=== PATIENT | female | born 1985 | race Asian ===

== ENCOUNTER 2024-04-20 23:45 | Emergency (ER) | payer OTHER ==
[2024-04-21] MEDS ORDERED: ASPIRIN 81 MG CHEWABLE TABLET ONE ×2 (00:08→00:10)
[2024-04-21] MEDS ORDERED: NA CHLORIDE 0.9% 1,000 ML ONE (00:09)
[2024-04-21] MEDS ORDERED: DIAZEPAM 5 MG TABLET ONE (00:09)
[2024-04-21 01:20] LABS: Absolute Eosinophils 0.1 K/uL (0-0.5); Absolute Lymphocytes (CBC) 2.7 K/uL (0.7-4.9); Absolute Monocytes 0.6 K/uL (0.1-1.3); Absolute Neutrophil 1.9 K/uL (1.8-8.0); Basophils % 0.6 % (0-1.3); Eosinophils % 1.2 % (0-4.4); Hematocrit 35.2 % (36.0-45.0); Hemoglobin 11.1 g/dL (12.0-15.0); Lymphocytes % 50.4 % (15.3-44.8); MCH 25.7 pg (27.0-35.0); MCHC 31.5 g/dL (32.0-36.0); MCV 81.7 fL (80-100); MPV 8.3 fL (7.6-11.3); Monocytes % 12.2 % (3.3-12.3); Neutrophils % 35.6 % (41.7-73.7); Platelets 317 thou/uL (152-406)
[2024-04-21 01:22] LABS: PT Prothrombin Time 10.3 SECONDS (9.4-12.5); Protime INR 0.92
[2024-04-21 01:37] LABS: ALT/SGPT 31 U/L (13-56); AST/SGOT 20 U/L (15-37); Albumin 3.6 g/dL (3.4-5.0); Albumin/Globulin Ratio 0.9 (1.1-1.8); Alkaline Phosphatase 67 U/L (45-117); Anion Gap 9.2 mEq/L (5.0-15.0); BUN Blood Urea Nitrogen 12 mg/dL (7-18); Bicarbonate 24 mEq/L (21-32); Bilirubin Total 0.3 mg/dL (0.2-1.0); Globulin 4.2 g/dL (2.3-3.5); Glomerular Filtration Rate 117 ml/min (=/>90); Glucose Level 129 mg/dL (74-106); NT PRO-BNP 13 pg/mL (<125); Potassium 3.2 mEq/L (3.5-5.1); Protein, Total 7.8 g/dL (6.4-8.2); Sodium Level 140 mEq/L (136-145)
[2024-04-21 02:06] LABS: Bilirubin Direct < 0.2 mg/dL (0-0.2); Bilirubin Indirect, Calculated 0.1 mg/dL (0.2-0.8)
--- NOTE | 2024-04-21 02:24 | EDPHYS ---
Physician Documentation [facility] Name: Warren Prescott Age: 38 yrs Sex: Female : 1985 Arrival Date: 04/20/2024 Time: 23:45 Bed 17 Private MD: ED Physician Michael Espinosa HPI: 04/20 23:51 This 38 yrs old Female presents to ER via Unassigned with complaints of Weakness. sp4 04/21 02:32 -year-old female presents with EMS for acute onset generalized weakness , dizziness and sp4 feeling unwell. Positive numbness and tingling diffusely arms legs and face. . 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 - Infectious Disease History:: Denies. - Social history:: Smoking status: Patient denies any tobacco usage or history of. - Family history:: not pertinent. ROS: 02:32 Constitutional: Negative for fever, chills, and weight loss, positive generalized sp4 weakness, positive dizziness, positive numbness and tingling face arms and legs. 02:32 All other systems are negative, Exam: 02:27 Constitutional: This is a well developed, well nourished patient who is awake, alert, sp4 and in no acute distress. Head/Face: Normocephalic, atraumatic. Eyes: Pupils equal round and reactive to light, extra-ocular motions intact. Lids and lashes normal. Conjunctiva and sclera are not injected. Cornea within normal limits. Periorbital areas with no swelling, redness, or edema. ENT: Nares patent. No nasal discharge, no septal abnormalities noted. Tympanic membranes are normal and external auditory canals are clear. Oropharynx with no redness, swelling, or masses, exudates, or evidence of obstruction, uvula midline. Mucous membranes moist. Neck: Trachea midline, no thyromegaly or masses palpated, and no cervical lymphadenopathy. Supple, full range of motion without nuchal rigidity, or vertebral point tenderness. Chest/axilla: Normal chest wall appearance and motion. Nontender with no deformity. No lesions are appreciated. Cardiovascular: Regular rate and rhythm with a normal S1 and S2. No gallops, murmurs, or rubs. Normal PMI, no JVD. No pulse deficits. Respiratory: Lungs have equal breath sounds bilaterally, clear to auscultation and percussion. No rales, rhonchi or wheezes noted. No increased work of breathing, no retractions or nasal flaring. Abdomen/GI: Soft, with normal bowel sounds. No distension or tympany. No guarding or rebound. No evidence of tenderness throughout. Back: No spinal tenderness. No costovertebral tenderness. Skin: Warm, dry with normal turgor. Normal color with no rashes, no lesions, and no evidence of cellulitis. MS/ Extremity: Pulses equal, no cyanosis. Neurovascular intact. Full, normal range of motion. Neuro: Awake and alert, GCS 15, oriented to person, place, time, and situation. Cranial nerves II-XII grossly intact. Motor strength 5/5 in all extremities. Sensory grossly intact. Psych: Awake, alert, with orientation to person, place and time. Behavior, mood, and affect are within normal limits 02:27 ECG was reviewed by the Attending Physician. Normal sinus rhythm , Normal EKG Vital Signs: 00:00 BP 130 / 80; Pulse 76; Resp 18; Temp 98.3; Pulse Ox 100% ; Weight 52.16 kg; Height 5 rg5 ft. 2 in. ; Pain 0/10; 00:30 BP 131 / 85; Pulse 86; Resp 17; Temp 98(O); Pulse Ox 100% on R/A; Pain 0/10; rg5 01:15 BP 128 / 81; Pulse 84; Resp 17; Pulse Ox 99% on R/A; Pain 0/10; rg5 02:10 BP 127 / 83; Pulse 81; Resp 17; Pulse Ox 100% on R/A; rg5 00:00 Body Mass Index 21.03 (52.16 kg, 157.48 cm) rg5 00:00 Pain Scale: Adult rg5 00:30 Pain Scale: Adult rg5 01:15 Pain Scale: Adult rg5 NIH Stroke Scale Scores: 00:26 NIHSS Score: 0 rg5 02:27 NIHSS Score: 0 sp4 Jolon Coma Score: 00:00 Eye Response: spontaneous(4). Motor Response: obeys commands(6). Verbal Response: rg5 oriented(5). Total: 15. MDM: 00:05 Patient medically screened. sp4 02:05 ED course: CLINICAL HISTORY: Dizziness. COMPARISON: None. TECHNIQUE: CT HEAD WITHOUT IV sp4 CONTRAST on 04/21/2024 12:05 AM CDT This exam was performed according to our departmental dose-optimization program, which includes automated exposure control, adjustment of the mA and/or kV according to patient size and/or use of iterative reconstruction technique. FINDINGS: There is no acute hemorrhage, mass effect or midline shift. Mccoy-white differentiation is preserved. There is no hydrocephalus. There is no significant volume loss for age. The calvarium is intact. Orbits and globes are unremarkable. The paranasal sinuses are clear. Mastoid air cells are clear. IMPRESSION: No acute intracranial findings. . ED course: EXAM DESCRIPTION: Chest Single View CLINICAL HISTORY: 38 years Female Chest pain. COMPARISON: None. TECHNIQUE: 1 view study of the chest was performed. FINDINGS: Cardiac size is within normal limits. Central vessels are not increased. Bilateral breast implants. Soft tissue densities mid and lower lungs bilaterally. Abnormality involving the lung parenchyma difficult to exclude on single AP image. No effusions bilaterally. No pneumothorax. IMPRESSION: No active disease. Soft tissue densities mid and lower lungs bilaterally related to bilateral implants. Abnormality involving the lung parenchyma difficult to exclude on single AP image. Correlation with PA and lateral views of the chest suggested for further characterization. Electronically signed by: Melisa Adkins MD 04/21/2024 12:43 AM CDT . 02:32 Data reviewed: vital signs, nurses notes, EMS record, lab test result(s), EKG, sp4 radiologic studies, CT scan, plain films. Consideration of Admission/Observation Escalation of care including admission/observation considered. ED course: Patient has improved symptomatically. She has normal neurologic exam, normal gait, and stable for discharge home.. Recommend visit with primary care physician for thyroid panel, screening test for rheumatologic problems, also Holter monitor, echocardiogram, and carotid Doppler. 04/20 23:52 Order name: Basic Metabolic Panel; Complete Time: 02:06 sp4 04/20 23:52 Order name: CBC with Diff; Complete Time: 02:06 sp4 04/20 23:52 Order name: LFT's; Complete Time: 02:06 sp4 04/20 23:52 Order name: Magnesium; Complete Time: 02:06 sp4 04/20 23:52 Order name: NT PRO-BNP; Complete Time: 02:06 sp4 04/20 23:52 Order name: PT-INR; Complete Time: 02:06 4 04/20 23:52 Order name: Troponin HS; Complete Time: 02:06 sp4 04/20 23:52 Order name: XRAY Chest (1 view) 4 04/21 00:04 Order name: CT Head Brain wo Cont 4 04/20 23:52 Order name: Cardiac monitoring; Complete Time: 23:59 sp4 04/20 23:52 Order name: EKG - Nurse/Tech; Complete Time: 00:24 sp4 04/20 23:52 Order name: IV Saline Lock; Complete Time: 00:03 4 04/20 23:52 Order name: Labs collected and sent; Complete Time: 00:24 4 04/20 23:52 Order name: O2 Per Protocol; Complete Time: 00:03 4 04/20 23:52 Order name: O2 Sat Monitoring; Complete Time: 23:59 sp4 EC:27 Rate is 70 beats/min. Rhythm is regular, Normal Sinus Rhythm. QRS [place] is Normal. [place] sp4 interval is normal. QRS interval is normal. QT interval is normal. No Q waves. T waves are Normal. No ST changes noted. Clinical impression: Normal ECG. Interpreted by me. Reviewed by me. Administered Medications: 00:13 Drug: NS 0.9% IV 1000 ml IV at 1 bolus Per protocol; 1000 mL bolus Route: IV; Rate: 1 rg5 bolus; Site: right antecubital; 01:48 Follow up: Response: No adverse reaction; IV Status: Completed infusion; IV Intake: rg5 1000ml 00:13 Drug: Diazepam PO 5 mg PO once Route: PO; rg5 01:48 Follow up: Response: No adverse reaction rg5 00:14 Drug: Aspirin PO Chewable Tablet 324 mg PO once; 81 mg tablets x 4 Route: PO; rg5 01:49 Follow up: Response: No adverse reaction rg5 Disposition Summary: 04/21/24 02:24 Discharge Ordered Problem: new sp4 Symptoms: have improved sp4 Condition: Stable sp4 Diagnosis - Dizziness and giddiness sp4 - Anxiety attack, acute hyperventilation sp4 Followup: sp4 - With: Private Physician - When: 7 - 10 days - Reason: Recheck today's complaints Discharge Instructions: - Discharge Summary Sheet sp4 - Managing Anxiety, Adult sp4 Forms: - Patient Portal Instructions sp4 Prescriptions: - Valium 5 mg Oral tablet - take 1 tablet ORAL route once daily As needed PRN anxiety or panic; 20 tablet; sp4 Refills: 0, Product Selection Permitted NIH Stroke Scale - NIH Stroke Score Date: 04/21/2024 Time: 00:26 Total Score = 0 10. Dysarthria (speech clarity - read or repeat words) - 0(Normal) 11. Extinction and Inattention (visual/tactile/auditory/spatial/personal) - 0(No abnormality) 1a. Level of Consciousness (LOC) - 0(Alert) 1b. Level of Consciousness (LOC) (Month \T\ Age) - 0(Both) 1c. LOC Commands (Open \T\ Closes Eyes/News Gathering Technician) - 0(Both) 2. Best Gaze (Lateral Gaze Paresis) - 0(Normal) 3. Visual Field Loss - 0(No visual loss) 4. Facial Palsy - 0(Normal) 5a. Left Arm: Motor (10-second hold) - 0(No drift) 5b. Right Arm: Motor (10-second hold) - 0(No drift) 6a. Left Leg: Motor (5-second hold - always test supine) - 0(No drift) 6b. Right Leg: Motor (5-second hold - always test supine) - 0(No drift) 7. Limb Ataxia (finger/nose \T\ heel/atkinson - test with eyes open) - 0(Absent) 8. Sensory Loss (pinprick arms/legs/face) - 0(Normal) 9. Best Language: Aphasia (description/naming/reading) - 0(No aphasia) Initials: rg5 NIH Stroke Scale - NIH Stroke Score Date: 04/21/2024 Time: 02:27 Total Score = 0 10. Dysarthria (speech clarity - read or repeat words) - 0(Normal) 11. Extinction and Inattention (visual/tactile/auditory/spatial/personal) - 0(No abnormality) 1a. Level of Consciousness (LOC) - 0(Alert) 1b. Level of Consciousness (LOC) (Month \T\ Age) - 0(Both) 1c. LOC Commands (Open \T\ Closes Eyes/News Gathering Technician) - 0(Both) 2. Best Gaze (Lateral Gaze Paresis) - 0(Normal) 3. Visual Field Loss - 0(No visual loss) 4. Facial Palsy - 0(Normal) 5a. Left Arm: Motor (10-second hold) - 0(No drift) 5b. Right Arm: Motor (10-second hold) - 0(No drift) 6a. Left Leg: Motor (5-second hold - always test supine) - 0(No drift) 6b. Right Leg: Motor (5-second hold - always test supine) - 0(No drift) 7. Limb Ataxia (finger/nose \T\ heel/atkinson - test with eyes open) - 0(Absent) 8. Sensory Loss (pinprick arms/legs/face) - 0(Normal) 9. Best Language: Aphasia (description/naming/reading) - 0(No aphasia) Initials: sp4 Signatures: Dispatcher [employer] EDMS Michael Espinosa MD MD sp4 Steve Cartwright RN RN rg5 Corrections: (The following items were deleted from the chart) 04/20 23:53 23:53 BASIC METABOLIC PANEL+C.LAB.BRZ ordered. EDMS EDMS 23:53 23:53 CBC+H.LAB.BRZ ordered. EDMS EDMS 23:53 23:53 HEPATIC FUNCTION+C.LAB.BRZ ordered. EDMS EDMS 23:53 23:53 MAGNESIUM+C.LAB.BRZ ordered. EDMS EDMS 23:53 23:53 PROBNP+C.LAB.BRZ ordered. EDMS EDMS 23:53 23:53 PROTIME (+INR)+COAG.LAB.BRZ ordered. EDMS EDMS 23:53 23:53 Troponin High Sensitivity+C.LAB.BRZ ordered. EDMS EDMS 23:53 23:53 Chest Single View+RAD.RAD.BRZ ordered. EDMS EDMS 04/21 00:05 00:05 Head Brain Wo Cont+CT.RAD.BRZ ordered. EDMS EDMS
--- NOTE | 2024-04-21 02:24 | ER ---
Nurse's Notes [facility] Name: Warren Prescott Age: 38 yrs Sex: Female : 1985 Arrival Date: 04/20/2024 Time: 23:45 Bed 17 Private MD: Diagnosis: Dizziness and giddiness;Anxiety attack, acute hyperventilation Presentation: 04/21 00:00 Chief complaint: EMS states: she feels dizzy, weak and numbness on the face, legs and rg5 all over the body. 00:00 Method Of Arrival: EMS: [facility] rg5 00:00 Coronavirus screen: Vaccine status: Patient reports receiving the 1st dose of the Covid rg5 vaccine. Client denies travel out of the [place] in the last 14 days. Ebola Screen: Patient negative for fever greater than or equal to 101.5 degrees Fahrenheit, and additional compatible Ebola Virus Disease symptoms. No acute neurological deficit is noted. Pre-hospital glucose is not applicable to this patient. Initial Sepsis Screen: Does the patient meet any 2 criteria? No. Patient's initial sepsis screen is negative. Initial Sepsis Screen: Does the patient have a suspected source of infection? No. Patient's initial sepsis screen is negative. Risk Assessment: Do you want to hurt yourself or someone else? Patient reports no desire to harm self or others. Onset of symptoms was April 20, 2024 at 23:00. 00:00 Acuity: CHIARA 3 rg5 Triage Assessment: 00:00 The onset of the patients symptoms was April 20, 2024 at 23:00. General: Appears rg5 distressed, uncomfortable, Behavior is cooperative, appropriate for age, anxious. Pain: Denies pain. EENT: No deficits noted. Neuro: Level of Consciousness is awake, alert, obeys commands, Oriented to person, place, time, Die Cutter Apprentice are equal bilaterally Moves all extremities. Gait is unsteady, Speech is normal, Facial symmetry appears normal, Pupils are PERRLA, Numbness in face, right arm, left arm, right leg and left leg Reports numbness. Cardiovascular: Denies chest pain, Heart tones S1 S2 Capillary refill < 3 seconds Patient's skin is warm and dry. Respiratory: Airway is patent Trachea midline Respiratory effort is even, unlabored, Respiratory pattern is regular, symmetrical. GI: Abdomen is flat, non-distended, Abd is soft and non tender. : No signs and/or symptoms were reported regarding the genitourinary system. Derm: No signs and/or symptoms reported regarding the dermatologic system. Skin is intact, Skin is dry, Skin is normal, Skin temperature is warm. Musculoskeletal: Range of motion: intact in all extremities. 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 - Infectious Disease History:: Denies. - Social history:: Smoking status: Patient denies any tobacco usage or history of. - Family history:: not pertinent. Screenin:00 [facility] ED Fall Risk Assessment (Adult) History of falling in the last 3 months, rg5 including since admission No falls in past 3 months (0 pts) Confusion or Disorientation No (0 pts) Intoxicated or Sedated No (0 pts) Impaired Gait No (0 pts) Mobility Assist Device Used No (0 pt) Altered Elimination No (0 pt) Score/Fall Risk Level 0 - 2 = Low Risk Oriented to surroundings, Maintained a safe environment, Educated pt \T\ family on fall prevention, incl call for assistance when getting out of bed, Assessed \T\ reinforced patient's understanding of fall precautions, Hourly rounding (assess needs \T\ fall precautionary measures) done. Abuse screen: Denies threats or abuse. Nutritional screening: No deficits noted. Tuberculosis screening: No symptoms or risk factors identified. Assessment: 00:26 VAN Scoring: Arm Drift: Patients demonstrates NO arm weakness. Patient is VAN Negative. rg5 Visual Disturbance: No visual disturbance noted. Aphasia: No aphasia noted. Neglect: No neglect noted. [place] Swallow Protocol Exclusion Criteria: Exclusion Criteria Result: Brief Cognitive Screen What is your name? Normal, Where are you right now? Normal, What year is it? Normal. Oral Mechanism Examination Facial Symmetry: Normal, Motion: Normal, Lip Closure: Normal, Oral Mechanism Result: Normal. 3 oz Water Swallow Challenge: Pt able to drink all water without stopping, coughing, choking or throat clearing: Yes Result: PASS Notified: Michael Espinosa MD. TNKase (Tenecteplase) Screening: Not Applicable. 01:28 Reassessment: No changes from previously documented assessment. Patient and/or family rg5 updated on plan of care and expected duration. Pain level reassessed. Patient is alert, oriented x 3, equal unlabored respirations, skin warm/dry/pink. 02:12 Reassessment: Patient and/or family updated on plan of care and expected duration. Pain rg5 level reassessed. Patient is alert, oriented x 3, equal unlabored respirations, skin warm/dry/pink. Neuro: Level of Consciousness is awake, alert, obeys commands, Oriented to person, place, time. Respiratory: Airway is patent Trachea midline Respiratory effort is even, unlabored, Respiratory pattern is regular, symmetrical. Vital Signs: 00:00 BP 130 / 80; Pulse 76; Resp 18; Temp 98.3; Pulse Ox 100% ; Weight 52.16 kg; Height 5 rg5 ft. 2 in. ; Pain 0/10; 00:30 BP 131 / 85; Pulse 86; Resp 17; Temp 98(O); Pulse Ox 100% on R/A; Pain 0/10; rg5 01:15 BP 128 / 81; Pulse 84; Resp 17; Pulse Ox 99% on R/A; Pain 0/10; rg5 02:10 BP 127 / 83; Pulse 81; Resp 17; Pulse Ox 100% on R/A; rg5 00:00 Body Mass Index 21.03 (52.16 kg, 157.48 cm) rg5 00:00 Pain Scale: Adult rg5 00:30 Pain Scale: Adult rg5 01:15 Pain Scale: Adult rg5 Markle Coma Score: 00:00 Eye Response: spontaneous(4). Motor Response: obeys commands(6). Verbal Response: rg5 oriented(5). Total: 15. NIH Stroke Scale Scores: 00:26 NIHSS Score: 0 rg5 02:27 NIHSS Score: 0 sp4 ED Course: 04/20 23:51 Patient arrived in ED. gm2 23:51 Michael Espinosa MD is Attending Physician. sp4 04/21 00:00 No provider procedures requiring assistance completed. Inserted saline lock: 18 gauge rg5 in right antecubital area, using aseptic technique. Blood collected. Flushed with 10 mL NS. 00:00 Arm band placed on left wrist. EKG completed in triage. Results shown to MD. rg5 00:00 Patient has correct armband on for positive identification. Bed in low position. Call rg5 light in reach. Side rails up X 1. Adult w/ patient. 00:02 Steve Cartwright, RN is Primary Nurse. rg5 00:17 XRAY Chest (1 view) In Process Unspecified. EDMS 00:22 Triage completed. rg5 00:23 EKG done, by ED staff. af3 00:46 CT Head Brain wo Cont In Process Unspecified. EDMS 02:40 IV discontinued, bleeding controlled, No redness/swelling at site. Pressure dressing rg5 applied. 02:40 Provided Education on: post er care. rg5 Administered Medications: 00:13 Drug: NS 0.9% IV 1000 ml IV at 1 bolus Per protocol; 1000 mL bolus Route: IV; Rate: 1 rg5 bolus; Site: right antecubital; 01:48 Follow up: Response: No adverse reaction; IV Status: Completed infusion; IV Intake: rg5 1000ml 00:13 Drug: Diazepam PO 5 mg PO once Route: PO; rg5 01:48 Follow up: Response: No adverse reaction rg5 00:14 Drug: Aspirin PO Chewable Tablet 324 mg PO once; 81 mg tablets x 4 Route: PO; rg5 01:49 Follow up: Response: No adverse reaction rg5 Medication: 00:00 VIS not applicable for this client. rg5 Intake: 01:48 IV: 1000ml; Total: 1000ml. rg5 Outcome: 02:24 Discharge ordered by MD. sp4 02:39 Discharged to home via wheelchair, rg5 02:39 Condition: stable 02:39 Discharge instructions given to patient, family, Instructed on discharge instructions, follow up and referral plans. Demonstrated understanding of instructions, follow-up care, medications, Prescriptions given X 1, 02:40 Patient left the ED. rg5 NIH Stroke Scale - NIH Stroke Score Date: 04/21/2024 Time: 00:26 Total Score = 0 10. Dysarthria (speech clarity - read or repeat words) - 0(Normal) 11. Extinction and Inattention (visual/tactile/auditory/spatial/personal) - 0(No abnormality) 1a. Level of Consciousness (LOC) - 0(Alert) 1b. Level of Consciousness (LOC) (Month \T\ Age) - 0(Both) 1c. LOC Commands (Open \T\ Closes Eyes/[place]ogn[place] Lead) - 0(Both) 2. Best Gaze (Lateral Gaze Paresis) - 0(Normal) 3. Visual Field Loss - 0(No visual loss) 4. Facial Palsy - 0(Normal) 5a. Left Arm: Motor (10-second hold) - 0(No drift) 5b. Right Arm: Motor (10-second hold) - 0(No drift) 6a. Left Leg: Motor (5-second hold - always test supine) - 0(No drift) 6b. Right Leg: Motor (5-second hold - always test supine) - 0(No drift) 7. Limb Ataxia (finger/nose \T\ heel/atkinson - test with eyes open) - 0(Absent) 8. Sensory Loss (pinprick arms/legs/face) - 0(Normal) 9. Best Language: Aphasia (description/naming/reading) - 0(No aphasia) Initials: rg5 NIH Stroke Scale - NIH Stroke Score Date: 04/21/2024 Time: 02:27 Total Score = 0 10. Dysarthria (speech clarity - read or repeat words) - 0(Normal) 11. Extinction and Inattention (visual/tactile/auditory/spatial/personal) - 0(No abnormality) 1a. Level of Consciousness (LOC) - 0(Alert) 1b. Level of Consciousness (LOC) (Month \T\ Age) - 0(Both) 1c. LOC Commands (Open \T\ Closes Eyes/[place]ognos Lead) - 0(Both) 2. Best Gaze (Lateral Gaze Paresis) - 0(Normal) 3. Visual Field Loss - 0(No visual loss) 4. Facial Palsy - 0(Normal) 5a. Left Arm: Motor (10-second hold) - 0(No drift) 5b. Right Arm: Motor (10-second hold) - 0(No drift) 6a. Left Leg: Motor (5-second hold - always test supine) - 0(No drift) 6b. Right Leg: Motor (5-second hold - always test supine) - 0(No drift) 7. Limb Ataxia (finger/nose \T\ heel/atkinson - test with eyes open) - 0(Absent) 8. Sensory Loss (pinprick arms/legs/face) - 0(Normal) 9. Best Language: Aphasia (description/naming/reading) - 0(No aphasia) Initials: sp4 Signatures: Dispatcher [employer] EDMS Potepalov, Michael, MD MD sp4 Kimberley Garcia gm2 Steve Cartwright RN RN rg5 Adeola Mtz 3
[2024-04-21 02:48] VITALS: TEMP 98
[2024-04-21 02:51] VITALS: BP 127/83; O2SAT 100
--- NOTE | 2024-04-22 13:33 | RAD REPORT ---
EXAM DESCRIPTION: Head Brain WO Contrast CLINICAL HISTORY: Dizziness. COMPARISON: None. TECHNIQUE: CT HEAD WITHOUT IV CONTRAST on 04/21/2024 12:05 AM CDT This exam was performed according to our departmental dose-optimization program, which includes autom ated exposure control, adjustment of the mA and/or kV according to patient size and/or use of iterati ve reconstruction technique. FINDINGS: There is no acute hemorrhage, mass effect or midline shift. Mccoy-white differentiation is preserved. There is no hydrocephalus. There is no significant volume loss for age. The calvarium is intact. Orbits and globes are unremarkable. The paranasal sinuses are clear. Mastoid air cells are clear. IMPRESSION: No acute intracranial findings. Electronically signed by: Toro Cheng MD 04/21/2024 01:20 AM CDT Due to temporary technical issues with the PACS/Fluency reporting system, reports are being signed by the in house radiologist without review as a courtesy to ensure prompt reporting. The interpreting r adiologist is fully responsible for the content of the report.
--- NOTE | 2024-04-22 13:34 | RAD REPORT ---
EXAM DESCRIPTION: Chest Single View CLINICAL HISTORY: 38 years Female Chest pain. COMPARISON: None. TECHNIQUE: 1 view study of the chest was performed. FINDINGS: Cardiac size is within normal limits. Central vessels are not increased. Bilateral breast implants. Soft tissue densities mid and lower lungs bilaterally. Abnormality involvi ng the lung parenchyma difficult to exclude on single AP image. No effusions bilaterally. No pneumoth orax. IMPRESSION: No active disease. Soft tissue densities mid and lower lungs bilaterally related to bila teral implants. Abnormality involving the lung parenchyma difficult to exclude on single AP image. Co rrelation with PA and lateral views of the chest suggested for further characterization. Electronically signed by: Melisa Adkins MD 04/21/2024 12:43 AM CDT RP Due to temporary technical issues with the PACS/Fluency reporting system, reports are being signed by the in house radiologist without review as a courtesy to ensure prompt reporting. The interpreting r adiologist is fully responsible for the content of the report.
--- NOTE | 2024-04-23 12:44 | EKG ---
Test Date: 2024-04-21 Test Time: 00:15:56 Aviation Ordnance Officer: AF MEASUREMENT RESULTS: Intervals: Rate: 71 NE: 142 QRSD: 70 QT: 440 QTc: 478 Justice: P: 63 NE: 142 QRS: 58 T: 63 INTERPRETIVE STATEMENTS: Normal sinus rhythm Normal ECG No previous ECG available for comparison Electronically Signed On 04-23-24 12:40:43 CDT by Edward Diaz
== END 2024-04-21 02:40 | disposition home or self-care (01) ==
LOC: ER 23:45
DX: F41.0 Panic disorder [episodic paroxysmal anxiety] (principal); R06.4 Hyperventilation
CPT/HCPCS: 96361; 93005; 85025; 80048; 36415; 83735; 85610; 80076; 84484; 83880; 70450; 71045; 96360; 99285; J7030